=== PATIENT | female | born 1980 | race Caucasian/White ===

== ENCOUNTER → 2021-08-21 15:09 | Outpatient (BNVA) | payer MEDICAID, SELFPAY | PROVIDERS: PCP Nurse Practitioner Primary Care; Visit Provider Nurse Practitioner Family | DX: M79.7 Fibromyalgia (principal); M50.10 Cervical disc disorder with radiculopathy, unspecified cervical region; M51.17 Intervertebral disc disorders with radiculopathy, lumbosacral region; M47.892 Other spondylosis, cervical region | CPT/HCPCS: 99202 ==

== ENCOUNTER → 2021-10-16 10:31 | Outpatient (BNVA) | payer MEDICAID, SELFPAY | PROVIDERS: PCP Nurse Practitioner Primary Care; Visit Provider Nurse Practitioner Family | DX: M79.7 Fibromyalgia (principal); M51.17 Intervertebral disc disorders with radiculopathy, lumbosacral region; M50.10 Cervical disc disorder with radiculopathy, unspecified cervical region; M47.892 Other spondylosis, cervical region | CPT/HCPCS: 99212 ==